=== PATIENT | female | born 2000 | race African-American/Black ===

== ENCOUNTER 2023-07-05 20:41 | Emergency (ER) | payer MEDICAID ==
[~2023-07-05] VITALS: Ht 157.5 cm; Wt 74.8 kg
[2023-07-05 21:42] VITALS: TEMP 98.1
[2023-07-05] MEDS ORDERED: IBUPROFEN 400 MG TABLET PO ONE (22:30)
[2023-07-05] MEDS ORDERED: ACETAMINOPHEN ES 500 MG TABLET PO ONE (22:30)
[2023-07-05] MEDS ORDERED: LORAZEPAM 0.5 MG TABLET PO ONE (22:30)
[2023-07-05] MEDS ORDERED: ACETAMINOPHEN ES 500 MG TABLET ONE (22:32)
[2023-07-05] MEDS ORDERED: IBUPROFEN 600 MG TABLET ONE (22:33)
[2023-07-05] MEDS ORDERED: IBUPROFEN 400 MG TABLET ONE (22:35)
[2023-07-05 23:42] VITALS: BP 121/71; O2SAT 100
== END 2023-07-05 23:42 | disposition home or self-care (01) ==
LOC: ER 20:47
DX: S06.0X0A Concussion without loss of consciousness, initial encounter (principal); E11.9 Type 2 diabetes mellitus without complications; Z60.2 Problems related to living alone; Y04.8XXA Assault by other bodily force, initial encounter; Y93.89 Activity, other specified; Y92.89 Other specified places as the place of occurrence of the external cause; Y99.8 Other external cause status
CPT/HCPCS: 70450-TC